=== PATIENT | female | born 1955 | race Caucasian/White ===

== ENCOUNTER 2017-10-23 17:46 | Emergency (ER) | payer OTHER ==
[~2017-10-23] VITALS: Ht 162.6 cm; Wt 68.0 kg
[2017-10-23 17:47] VITALS: BP 133/77; PULSE 62; RESP 16; TEMP 98; O2SAT 97
[2017-10-23] MEDS ORDERED: REPLGEL TOPICAL (19:57)
--- NOTE | 2017-10-23 19:59 | PD ---
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 She has had a partial hysterectomy in the past and hasn't had any vaginal bleeding since she was 31 years old. Today she noticed a bright red blood trickle down her thigh and she became panicked. She does acknowledge a little bit of abdominal cramping, lower, mild, with no associated fevers, chills or vomiting. 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 HEAD: Atraumatic. Normocephalic. EYES: Pupils equal and round. No injection or drainage. ENT: Moist mucous membranes NECK: Trachea midline. CARDIOVASCULAR: Regular rate and rhythm. No murmur appreciated. RESPIRATORY: Clear to auscultation. Breath sounds equal bilaterally. GASTROINTESTINAL: Abdomen soft, non-tender, nondistended. 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 NEUROLOGICAL: Awake and alert. No obvious cranial nerve deficits. Moving all extremities. PSYCHIATRIC: Appropriate mood and affect; insight and judgment normal. Data Data Last Documented VS Vital Signs Date Time Temp Pulse Resp B/P (MAP) Pulse Ox O2 Delivery O2 Flow Rate FiO2 10/23/17 17:47 98.0 62 16 133/77 (95) 97 Room Air MDM Medical Decision Making Medical Screen Exam Complete: Yes Emergency Medical Condition: Yes Interpretation(s) Afebrile, no tachycardia, normotensive Differential Diagnosis Endometrial hyperplasia, vaginal tear, vaginal laceration, polyp Narrative Course This is a 61-year-old female who presents to the emergency department with bleeding from her vagina. She has evidence on exam of vaginal atrophy and 2 areas of abrasion and break down. Patient will be placed on a moisturizer and was referred to gynecology for further evaluation. Diagnosis Primary Impression: Vaginal abrasion Qualified Codes: S30.814A - Abrasion of vagina and vulva, initial encounter Patient Instructions: General Instructions Additional Instructions: Follow-up with a film recordist as an outpatient to ensure your skin is healing. Med/Other Pt SpecificInfo: Prescription(s) given Scripts Vaginal Lubricant (Replens Vaginal Moisturiz) 1 Gel Gel 1 APPLIC TOPICAL 3xweek, #1 TUBE Prov: Jyoti Gallagher MD 10/23/17 Disposition: 01 DISCHARGE HOME Condition: Stable Jyoti Gallagher MD Oct 23, 2017 19:59
== END 2017-10-23 20:15 | disposition home or self-care (01) ==
LOC: NEPD 17:46
DX: S30.814A Abrasion of vagina and vulva, initial encounter (principal); X58.XXXA Exposure to other specified factors, initial encounter
CPT/HCPCS: 99283

== ENCOUNTER → 2018-01-31 | Outpatient (CLI) | payer OTHER ==
[~2018-01-31] MED LIST: REPLGEL TOPICAL
--- NOTE | 2018-01-31 11:45 | RADRPT ---
EXAM DATE/TIME: 01/31/2018 11:35 [facility] COMPARISON: No previous studies available for comparison. INDICATIONS : Follow-up pneumonia. MEDICAL HISTORY : Hypertension. SURGICAL HISTORY : None. ENCOUNTER: Initial ACUITY: 1 day PAIN SCORE: 0/10 LOCATION: Bilateral chest FINDINGS: PA and lateral views of the chest demonstrate the lungs to be symmetrically aerated without evidence of mass, infiltrate or effusion. Retrocardiac density. The cardiomediastinal contours are unremarkab le. Osseous structures are intact. CONCLUSION: 1. No evidence for infiltrate. 2. Hiatal hernia. Homero Lu MD on January 31, 2018 at 11:43 Board Certified Radiologist. This report was verified electronically.
== END ==
LOC: HRAD 11:21
DX: J18.9 Pneumonia, unspecified organism (principal)
CPT/HCPCS: 71046